=== PATIENT | female | born 1975 | race Caucasian/White ===

== ENCOUNTER 2023-10-30 23:23 | Emergency (ER) | payer SELFPAY ==
[~2023-10-30] VITALS: Ht 167.6 cm; Wt 61.2 kg
[2023-10-30] MEDS: IBUPROFEN 400 MG TABLET PO ONE (23:48)
[2023-10-30] MEDS ORDERED: IBUPROFEN 400 MG TABLET ONE (23:48)
[2023-10-31 01:42] VITALS: BP 128/79; TEMP 98; O2SAT 99
== END 2023-10-31 01:42 | disposition home or self-care (01) ==
LOC: ER 23:32
DX: S09.90XA Unspecified injury of head, initial encounter (principal); V89.2XXA Person injured in unspecified motor-vehicle accident, traffic, initial encounter; Y93.89 Activity, other specified; Y92.89 Other specified places as the place of occurrence of the external cause; Y99.8 Other external cause status
CPT/HCPCS: 70450-TC